=== PATIENT | male | born 1950 | race Caucasian/White ===

== ENCOUNTER → 2016-08-05 | Outpatient (CLI) | payer OTHER | END | disposition home or self-care (01) | LOC: PCVCIMAG 13:49 | PROVIDERS: ATTEND Internal Medicine Cardiovascular Disease | DX: R94.31 Abnormal electrocardiogram [ECG] [EKG] (principal); I08.1 Rheumatic disorders of both mitral and tricuspid valves; I44.1 Atrioventricular block, second degree; Z82.49 Family history of ischemic heart disease and other diseases of the circulatory system | CPT/HCPCS: 80061; 93005; 93017; 93306 ==